=== PATIENT | female | born 1985 | race Hispanic/Latino ===

== ENCOUNTER 2017-12-14 03:50 | Emergency (ER) | payer OTHER ==
[2017-12-14 04:06] VITALS: BMI 21.7
[2017-12-14 04:09] VITALS: BP 112/74; RESP 18; TEMP 97.7
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
[2017-12-14 05:15] VITALS: PULSE 61
[2017-12-14 05:23] VITALS: O2SAT 97
== END 2017-12-14 05:20 | disposition home or self-care (01) ==
LOC: C.ER 03:50
DX: S16.1XXA Strain of muscle, fascia and tendon at neck level, initial encounter (principal); V89.2XXA Person injured in unspecified motor-vehicle accident, traffic, initial encounter

== ENCOUNTER 2017-12-15 14:07 | Emergency (ER) | payer OTHER ==
[2017-12-15 14:08] VITALS: BMI 20.7
[2017-12-15 14:22] VITALS: BP 121/80; PULSE 59; RESP 18; TEMP 97.1; O2SAT 100
--- NOTE | 2017-12-15 14:26 | C.PDOC ---
Time Seen by Provider: 12/15/17 14:17 Chief Complaint (Nursing): Back Pain Past Medical History Vital Signs: Last Vital Signs Temp 97.1 F L 12/15/17 14:19 Pulse 59 L 12/15/17 14:19 Resp 18 12/15/17 14:19 BP 121/80 12/15/17 14:19 Pulse Ox 100 12/15/17 14:19 - Social History Hx Alcohol Use: Yes Hx Substance Use: No - Immunization History Hx Tetanus Toxoid Vaccination: Yes Hx Influenza Vaccination: No Hx Pneumococcal Vaccination: No ED Course And Treatment O2 Sat by Pulse Oximetry: 100 Disposition - Disposition
[2017-12-15] MEDS ORDERED: Lidocaine 5% Patch TD STA (14:48)
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
== END 2017-12-15 14:52 | disposition home or self-care (01) ==
LOC: C.ER 14:07
DX: M54.9 Dorsalgia, unspecified (principal); M62.838 Other muscle spasm